=== PATIENT | male | born 1975 | race Hispanic/Latino ===

== ENCOUNTER 2020-08-22 12:10 | Emergency (ER) | payer OTHER ==
--- OUTSIDE RECORDS SUMMARY | 2020-08-22 12:14 | XMS REPORT | Continuity of Care Document ---
:1975 Author Organization [facility] t Address [address] [place] [address] Care Team Providers Name Role Phone Wheeler Rosalba BLANCO Attending Clinician [phone] Oleg BERUMEN Attending Clinician Unavailable AUGUST KAUR Attending Clinician Unavailable August Kaur MD Attending Clinician Katherine ADAMS Attending Clinician Mayra Perrin MD Attending Clinician Harlan Bess MD Attending Clinician Anabel Pacheco MD Attending Clinician KATHERINE Admitting Clinician Unavailable Problems Condition Condition Condition Status Onset Resolution Last Treating Co mments Source Name Details Category Date Date Treatment Clinician Date Upper GI Upper [facility] Disease [facility] [place] Alcoholism Alcoholism Disease Active [address] 10[facility]06 [facility] 00 [place] Allergies, Adverse Reactions, Alerts This patient has no known allergies or adverse reactions. Social History Social Habit Start Date Stop Date Quantity Comments Source Sex Assigned At [facility] Tobacco use and 2019-10-09 2019-10-09 Current user [facility] - exposure 00:00:00 00:00:00 [facility] Alcohol intake 2019-10-09 2019-10-09 [facility] (finding) Tobacco Comment 2019-10-07 2019-10-07 only on weekends [facility] kes - 00:00:00 00:00:00 10-12 cigrettes Medical C enter Alcohol Comment 2019-10-07 2019-10-07 daily [facility] kes - 00:00:00 00:00:00 Medical Center Smoking Status Start Date Stop Date Source Current some day smoker 2019-10-09 00:00:00 [facility] Medications Ordered Filled Start Stop Current Ordering Indication Dosage Frequency Signature Comments Components Source Medication Medication Date Date Medication? Clinician (SIG) Name Name multivitami No 1{tbl} QD Take [address] n 10-09 tablet by [facility] - (THERAGRAN) 00:00: 23:59 mouth Medi mariana tablet 00 :00 daily for Center 30 days. levoFLOXaci No 500mg QD Take [address] n 10-09 tablet [facility] - (LEVAQUIN) 00:00: 23:59 (500 mg Med ical 500 MG 00 :00 total) by Center tablet mouth daily for 2 days START 10/10/19. pantoprazol No 40mg Q.5D Take [address] [facility] [address] e 10-08 tablet (40 [facility] - (PROTONIX) 00:00: 23:59 mg total) M edical 40 MG 00 :00 by mouth 2 Center tablet (two) times daily for 30 days. Vital Signs Vital Name Observation Time Observation Value Comments Source Systolic blood 2019-10-09 12:08:00 150 mm[Hg] [facility] Diastolic blood 2019-10-09 12:08:00 76 mm[Hg] [facility] S t [facility] Heart rate 2019-10-09 12:08:00 63 /min [facility] Body temperature 2019-10-09 12:08:00 37.06 Jess [facility] Respiratory rate 2019-10-09 12:08:00 18 /min [facility] Oxygen saturation in 2019-10-09 12:08:00 100 /min [facility] Arterial blood by Medical Ce nter Pulse oximetry Body height 2019-10-07 02:30:00 170.2 cm [facility] Body weight 2019-10-07 02:30:00 85.004 kg [facility] BMI 2019-10-07 02:30:00 29.35 kg/m2 [facility] Procedures Procedure Date / Time Performing Clinician Source Performed CBC W/PLT COUNT & AUTO 2019-10-09 04:31:00 Velazco, Keyon [facility] COMPREHENSIVE METABOLIC 2019-10-09 04:31:00 Velazco, Keyon Patiño I [facility] MAGNESIUM 2019-10-09 04:31:00 Velazco, [facility] LPDPT-4-XPABWGPEMSD\\, 2019-10-09 04:31:00 Ko Cloón [facility] HEPATITIS B PANEL 2019-10-09 04:31:00 Ko Colón [facility] HEPATITIS A ANTIBODY, IGG 2019-10-09 04:31:00 Darleen Colón [facility] IMMUNOGLOBULIN G (IGG) 2019-10-09 04:31:00 Ko Colón [facility] US ABDOMINAL WITH DOPPLER 2019-10-08 23:06:00 [facility] TRANSFUSION SERVICE REPORT 2019-10-08 18:00:44 Provider, Emir [facility] - - SCAN Scanning [facility] MAGNESIUM 2019-10-08 04:18:00 Velazco, Keyon [facility] CBC W/PLT COUNT & AUTO 2019-10-08 04:18:00 [facility] METABOLIC 2019-10-08 04:18:00 Velazco, Keyon [facility] HEPATITIS PANEL, ACUTE 2019-10-08 04:17:00 Brianna Bess [facility] ALPHA FETOPROTEIN (AFP), 2019-10-08 04:17:00 Brianna Bess [facility] TUMOR MARKER [facility] ACTIN (SMOOTH MUSCLE) 2019-10-08 04:17:00 Fox Duran [facility] - ANTIBODY, IGG [facility] MITOCHONDRIA M2 ANTIBODY 2019-10-08 04:17:00 Duran, [facility] (IGG) [facility] FERRITIN 2019-10-08 04:17:00 [facility] IRON, TIBC, % SAT. 2019-10-08 04:17:[address] [facility] (WITHOUT FERRITIN) [facility] VITAMIN B12 2019-10-08 04:17:00 [facility] FOLATE, SERUM 2019-10-08 04:17:00 [facility] CERULOPLASMIN 2019-10-08 04:17:00 [facility] UPPER ENDOSCOPY 2019-10-07 15:30:00 Shahriar [facility] REPORT OF PROCEDURE - 2019-10-07 15:17:09 [place]riar [place] [facility] ENDOSCOPY [facility] US ABDOMEN LIMITED 2019-10-07 08:23:00 Velazco, [facility] ABORH, MANUAL 2019-10-07 07:12:00 Ifeoma Tomas [facility] TYPE AND SCREEN, AUTOMATED 2019-10-07 05:47:00 Velazco, [facility] MAGNESIUM 2019-10-07 05:47:00 Velazco, [facility] SARS-COV2/RT-PCR ([facility] & 2019-10-07 04:41:00 Katherine [facility] - REF LABS) [facility] CBC W/PLT COUNT & AUTO 2019-10-07 04:29:00 Velazco, Keyon [facility] DIFFERENTIAL [facility] COMPREHENSIVE METABOLIC 2019-10-07 04:29:00 Velazco, Keyon [facility] PANEL [facility] PROTHROMBIN TIME/INR 2019-10-07 04:29:00 Velazco, Keyon [facility] t [place] [facility] APTT 2019-10-07 04:29:00 Velazco, [facility] Plan of Care Planned Activity Planned Date Details Comments Source Future Scheduled 2020-10-[address] [facility] Test 00:00:00 (Season Ended) [code = [facility] INFLUENZA VACCINE (Season Ended)] Future Scheduled 2020-03-[address] [facility] - Test 00:00:00 (12+) [code = Medical Center DEPRESSION SCREENING (12+)] Future Scheduled 2010-11-[address] [facility] - Test 00:00:00 (procedure) [code = [facility] 47854896] Future Scheduled 1994-11-13 DTAP/TDAP/TD VACCINES [facility] Test 00:00:00 (1 - Tdap) [code = Medical C enter DTAP/TDAP/TD VACCINES (1 - Tdap)] Future Scheduled 1987 COVID-19 VACCINE (1) [facility] - Test 00:00:00 [code = COVID-[address] VACCINE (1)] Future Scheduled 1981-11-[address] [facility] - Test 00:00:00 0-64 YRS (1 of 1 - Medical C enter PPSV23) [code = PNEUMOCOCCAL VACCINE 0-64 YRS (1 of 1 - PPSV23)] Results Test Description Test Time Test Comments Results Result Comments Source Ceruloplasmin 2019-10-12 14:40:00 Test Item Value Reference Range Interpretation Comme nts Ceruloplasmin (test code = 9794401) 22 mg/dL 18-36 JAIME (test code = JAIME) Performing Lab *VIDAL [employer], [address] [place] [id number] Alan Byrne MD, PhD [facility] (Smooth Muscle) Antibody, [id number] 06:52:00 Test Item Value Reference Range Interpretation Comments Anti-Smooth <20 See Note: U Reference Range :<20 Muscle Ab NEGATIVE> O R = 20 (test code = POSITIVE Antibo dies 9944242) recognizing act in are the main compon entof smooth muscle antibodies asso ciated withautoimmune liver disease. Actin antibodies aref ound in approximatel y 75% of patients withautoimmune hepatitis (AIH) type 1, approximatel y65% of patients wit h autoimmune cholangitis,[place] roxima tely 30% of pat ients with primary biliarycirrhosi s, and approximately 2 % of healthy people. High values are clos corbin correlated with AIH type 1. JAIME (test code Performing Lab = JAIME) EZ [facility] [address] [place] [address] Yanira Wong MD, PhD, LIS [facility] CenterMitochondria M2 Antibody (IgG)2019-10-12 06:52:00 Test Item Value Reference Range Interpretation Comments Mitochondria M2 Ab <20.0 See Note: U Reference (test code = Range:NEGATIVE: ) < OR = 20.0EQUIVOCAL: 20.1-24.9POSITI V E: > OR = 25.0 JAIME (test code = Performing Lab JAIME) [facility] [address] [place] [address] Yanira Wong MD, PhD, LIS [facility] panel, [id number] 12:24:00 Test Item Value Reference Range Interpretation Comments Hep A IgM (test code Nonreactive Nonreactive = 85601-4) Hep B C IgM (test Nonreactive Nonreactive Testing code = 76130-7) Performed at [facility]. Hepatitis C Ab (test Nonreactive Nonreactive code = 01102-8) HBsAg Screen (test Nonreactive Nonreactive code = 5195-3) JAIME (test code = JAIME) Cost Reduction Engineer ID - SHAZIA F Lab Interpretation Normal (test code = 95835-1) [facility] PANEL, [id number] 12:24:00 Test Item Value Reference Range Interpretation Comments HEPATITIS A IGM Nonreactive Nonreactive ANTIBODY (BEAKER) (test code = 498) HEPATITIS B CORE IGM Nonreactive Nonreactive Testing Performed at ANTIBODY (BEAKER) Droid system master. (test code = 645) HEPATITIS C ANTIBODY Nonreactive Nonreactive (BEAKER) (test code = 367) HEPATITIS B SURFACE Nonreactive Nonreactive ANTIGEN (2) (BEAKER) (test code = 2585) Cost Reduction Engineer ID Mini MCCRAY FHepatitis A antibody, [id number] 06:49:00 Test Item Value Reference Range Interpretation Comments Hep A IgG (test code = Reactive Nonreactive A 32268-4) JAIME (test code = JAIME) Cost Reduction Engineer ID Mini BURNHAM Lab Interpretation (test Abnormal code = 52079-0) [facility] A ANTIBODY, [id number] 06:49:00 Test Item Value Reference Range Interpretation Comments HEPATITIS A IGG ANTIBODY (BEAKER) Reactive Nonreactive A (test code = 2797) Cost Reduction Engineer ID - DBHepatitis B [id number] 05:48:00 Test Item Value Reference Range Interpretation Comments Hep B Core Total Ab Nonreactive Nonreactive (test code = 60000-2) Hep B S Ab (test <8.0 See_Comment [Automated code = 33504-9) message] The system which generated this result transmitted reference range : <8.0 mIU/mL. e reference range was not used to interpret this result as normal/abnormal . HBsAg Screen (test Nonreactive Nonreactive code = 5195-3) JAIME (test code = Cost Reduction Engineer ID - DB JAIME) Lab Interpretation Normal (test code = 55405-6) [facility] B [id number] 05:48:00 Test Item Value Reference Range Interpretation Comments HEPATITIS B CORE TOTAL ANTIBODY Nonreactive Nonreactive (BEAKER) (test code = 497) HEPATITIS B SURFACE ANTIBODY < mIU/mL <8.0 (BEAKER) (test code = 647) HEPATITIS B SURFACE ANTIGEN (2) Nonreactive Nonreactive (BEAKER) (test code = 2585) Cost Reduction Engineer ID - DBComprehensive metabolic [id number] 05:37:00 Test Item Value Reference Range Interpretation Comments Protein, Total (test 7.0 See_Comment Specime n code = 2885-2) moderately hemolyzed [Automated message] The system which generated this result transmit mariela reference range : 6.0 - 8.3 gm/dL . The reference range was not u sed to interpret th is result as normal/abnormal . Albumin (test code = 3.4 g/dL 3.5-5 [place] [address]-3) moderately hemolyzed Alkaline Phosphatase 78 U/L 40-150 (test code = 6768-6) Total Bilirubin (test 1.7 mg/dL 0.2-1.2 H Specim en code = 1975-2) moderately hemolyzed Sodium (test code = 138 meq/L 037-071 2764-2) Potassium (test code 3.8 meq/L 3.5-5.1 Specime n = 2823-3) moderately hemolyzed Chloride (test code = 104 meq/L 98-107 2075-0) CO2 (test code = 26 meq/L 22-29 8-9) BUN (test code = 10 mg/dL 7-21 3094-0) Creatinine (test code 0.74 mg/dL 0.57-1.25 Specim en = 2160-0) moderately hemolyzed Glucose (test code = 106 mg/dL 70-105 H 2345-7) Calcium (test code = 8.5 mg/dL 8.4-10.2 62843-2) AST (test code = 70 U/L 5-34 H Specimen 1920-8) moderately hemolyzed ALT (test code = 25 U/L 6-55 Specimen 1742-6) moderately hemolyzed EGFR (test code = 115 mL/min/1.73 [place] [address]-9) NOT ACCURATE CREATININE CLEARANCE IN PREDICTING GLOMERULAR FILTRATION RATE . ESTIMATED GFR I S NOT APPLICABLE FOR DIALYSIS PATIEN TS. JAIME (test code = JAIME) Cost Reduction Engineer ID - EDASI Lab Interpretation Abnormal (test code = 95733-8) [facility] 05:37:00 Test Item Value Reference Range Interpretation Comments Magnesium (test code = 2.0 mg/dL 1.6-2.6 Speci men 01697-9) moderately hemolyzed AJIME (test code = JAIME) Cost Reduction Engineer ID - EDASI Lab Interpretation Normal (test code = 73221-5) [facility] 05:37:00 Test Item Value Reference Range Interpretation Comments MAGNESIUM (BEAKER) 2.0 mg/dL 1.6-2.6 Specimen moderately (test code = 627) hemolyzed Cost Reduction Engineer ID - EDASICOMPREHENSIVE METABOLIC [id number] 05:37:00 Test Item Value Reference Range Interpretation Comments TOTAL PROTEIN 7.0 gm/dL 6.0-8.3 Specimen moder ately (BEAKER) (test code = hemoly zed 770) ALBUMIN (BEAKER) 3.4 g/dL 3.5-5.0 L Specimen mo derately (test code = 1145) hemolyzed ALKALINE PHOSPHATASE 78 U/L 40-150 (BEAKER) (test code = 346) BILIRUBIN TOTAL 1.7 mg/dL 0.2-1.2 H Specimen mod erately (BEAKER) (test code = hemoly zed 377) SODIUM (BEAKER) (test 138 meq/L 136-145 code = 381) POTASSIUM (BEAKER) 3.8 meq/L 3.5-5.1 Specimen moderately (test code = 379) hemolyzed CHLORIDE (BEAKER) 104 meq/L 98-107 (test code = 382) CO2 (BEAKER) (test 26 meq/L 22-29 code = 355) BLOOD UREA NITROGEN 10 mg/dL 7-21 (BEAKER) (test code = 354) CREATININE (BEAKER) 0.74 mg/dL 0.57-1.25 Specimen moderately (test code = 358) hemolyzed GLUCOSE RANDOM 106 mg/dL 70-105 H (BEAKER) (test code = 652) CALCIUM (BEAKER) 8.5 mg/dL 8.4-10.2 (test code = 697) AST (SGOT) (BEAKER) 70 U/L 5-34 H Specimen moderately (test code = 353) hemolyzed ALT (SGPT) (BEAKER) 25 U/L 6-55 Specimen moderately (test code = 347) hemolyzed EGFR (BEAKER) (test 115 ESTIMATE D GFR IS code = 1092) mL/min/1.73 sq NOT ACCURA TE m CREATININE CLEARANCE IN PREDICTING GLOMERULAR FILTRATION RATE . ESTIMATED GFR I S NOT APPLICABLE FOR DIALYSIS PATIEN TS. Cost Reduction Engineer ID - EDASIImmunoglobulin G (IgG)2019-10-09 05:12:00 Test Item Value Reference Range Interpretation Comments IgG (test code = 2465-3) 1311 mg/dL 540-1822 JAIME (test code = JAIME) Cost Reduction Engineer ID - DB Lab Interpretation (test Normal code = 33507-0) [facility] CenterAlpha-1-[id number] 05:12:00 Test Item Value Reference Range Interpretation Comments A-1 Antitrypsin (test code = 155.70 mg/dL 90-200 1825-9) JAIME (test code = JAIME) Cost Reduction Engineer ID - DB Lab Interpretation (test Normal code = 33682-0) [facility] [id number]-1-[id number] 05:12:00 Test Item Value Reference Range Interpretation Comments ALPHA-1 ANTITRYPSIN (BEAKER) 155.70 mg/dL 90.00-200.00 (test code = 502) Cost Reduction Engineer ID - DBIMMUNOGLOBULIN G (IGG)2019-10-09 05:12:00 Test Item Value Reference Range Interpretation Comments IMMUNOGLOBULIN G (IGG) (BEAKER) 1311 mg/dL 540-1,822 (test code = 427) Cost Reduction Engineer ID - DBCBC with platelet count + automated [id number] 04:47:00 Test Item Value Reference Range Interpretation Comments WBC (test code = 6690-2) 6.1 See_Comment [A utomated message] The system [employer] generated this result transmitted ref erence range: 3.5 - 10 .5 K/L. The refe rence range was not u sed to interpret this result as normal/abnor mal. RBC (test code = 789-8) 3.55 See_Comment L [Au tomated message] The system [employer] generated this result transmitted ref erence range: 4.63 - 6 .08 M/L. The refe rence range was not u sed to interpret this result as normal/abnor mal. MCHC (test code = 786-4) 33.2 See_Comment L [A utomated message] The system [employer] generated this result transmitted ref erence range: 32.3 - 3 6.5 GM/DL. The refe rence range was not u sed to interpret this result as normal/abnor mal. Hematocrit (test code = 36.4 % 40.1-51 L 4544-3) MCV (test code = 787-2) 102.5 fL 79-92.2 H MCH (test code = 785-6) 34.1 pg 25.7-32.2 H RDW (test code = 788-0) 13.8 % 11.6-14.4 Platelets (test code = 48 See_Comment L [Aut omated message] 777-3) The system [employer] generated this result transmitted ref erence range: 150 - 45 0 K/CU MM. The referen ce range was not u sed to interpret this result as normal/abnor mal. MPV (test code = 11.8 fL 9.4-12.4 30450-0) nRBC (test code = 413) 0 See_Comment [Aut omated message] The system [employer] generated this result transmitted ref erence range: 0 - 0 /1 00 WBC. The refere nce range was not u sed to interpret this result as normal/abnor mal. % Neutros (test code = 61 % 429) % Lymphs (test code = 23 % 430) % Monos (test code = 11 % 431) % Eos (test code = 432) 4 % % Baso (test code = 437) 1 % # Neutros (test code = 3.76 See_Comment [Aut omated message] 670) The system [employer] generated this result transmitted ref erence range: 1.78 - 5 .38 K/L. The refe rence range was not u sed to interpret this result as normal/abnor mal. # Lymphs (test code = 1.38 See_Comment [Auto mated message] 414) The system [employer] generated this result transmitted ref erence range: 1.32 - 3 .57 K/L. The refe rence range was not u sed to interpret this result as normal/abnor mal. # Monos (test code = 0.69 See_Comment [Autom ated message] 415) The system [employer] generated this result transmitted ref erence range: 0.30 - 0 .82 K/L. The refe rence range was not u sed to interpret this result as normal/abnor mal. # Eos (test code = 416) 0.25 See_Comment [Au tomated message] The system [employer] generated this result transmitted ref erence range: 0.04 - 0 .54 K/L. The refe rence range was not u sed to interpret this result as normal/abnor mal. # Baso (test code = 417) 0.04 See_Comment [A utomated message] The system [employer] generated this result transmitted ref erence range: 0.01 - 0 .08 K/L. The refe rence range was not u sed to interpret this result as normal/abnor mal. Immature 0 % 0-1 Granulocytes-Relative (test code = 2801) Lab Interpretation (test Abnormal code = 34117-4) [facility] W/PLT COUNT & AUTO [id number] 04:47:00 Test Item Value Reference Range Interpretation Comments WHITE BLOOD CELL COUNT (BEAKER) 6.1 K/ L 3.5-10.5 (test code = 775) RED BLOOD CELL COUNT (BEAKER) 3.55 M/ L 4.63-6.08 L (test code = 761) HEMOGLOBIN (BEAKER) (test code = 12.1 GM/DL 13.7-17.5 L 410) HEMATOCRIT (BEAKER) (test code = 36.4 % 40.1-51.0 L 411) MEAN CORPUSCULAR VOLUME (BEAKER) 102.5 fL 79.0-92.2 H (test code = 753) MEAN CORPUSCULAR HEMOGLOBIN 34.1 pg 25.7-32.2 H (BEAKER) (test code = 751) MEAN CORPUSCULAR HEMOGLOBIN CONC 33.2 GM/DL 32.3-36.5 (BEAKER) (test code = 752) RED CELL DISTRIBUTION WIDTH 13.8 % 11.6-14.4 (BEAKER) (test code = 412) PLATELET COUNT (BEAKER) (test code 48 K/CU MM 150-450 L = 756) MEAN PLATELET VOLUME (BEAKER) 11.8 fL 9.4-12.4 (test code = 754) NUCLEATED RED BLOOD CELLS (BEAKER) 0 /100 WBC 0-0 (test code = 413) NEUTROPHILS RELATIVE PERCENT 61 % (BEAKER) (test code = 429) LYMPHOCYTES RELATIVE PERCENT 23 % (BEAKER) (test code = 430) MONOCYTES RELATIVE PERCENT 11 % (BEAKER) (test code = 431) EOSINOPHILS RELATIVE PERCENT 4 % (BEAKER) (test code = 432) BASOPHILS RELATIVE PERCENT 1 % (BEAKER) (test code = 437) NEUTROPHILS ABSOLUTE COUNT 3.76 K/ L 1.78-5.38 (BEAKER) (test code = 670) LYMPHOCYTES ABSOLUTE COUNT 1.38 K/ L 1.32-3.57 (BEAKER) (test code = 414) MONOCYTES ABSOLUTE COUNT (BEAKER) 0.69 K/ L 0.30-0.82 (test code = 415) EOSINOPHILS ABSOLUTE COUNT 0.25 K/ L 0.04-0.54 (BEAKER) (test code = 416) BASOPHILS ABSOLUTE COUNT (BEAKER) 0.04 K/ L 0.01-0.08 (test code = 417) IMMATURE GRANULOCYTES-RELATIVE 0 % 0-1 PERCENT (BEAKER) (test code = 2801) U/S, ABDOMINAL, WITH [id number] 01:03:00Reason for exam:->Complete U/s, including eval of portal system for thrombosis and spleenFINAL REPORT History: "Complete ultrasound, including evaluation of portal system for thrombosis and spleen" Abdominal ultrasound dated 10/08/2019 Comparison: 10/07/2019 Comment: Real-time transabdominal ultrasound of the abdomen was performed. Liver: 14.8 cm , normal. Heterogeneous parenchymal echogenicity. No focal lesions. Gallbladder: No gallstones. No gallbladder wall thickening. No perocholecystic fluid.. No sonographic Emmanuel's sign. Biliary tree: No intrahepatic ductal dilatation. CBD: 5 mm. Spleen: Mild splenomegaly measuring 13.4 cm. Pancreas: Unremarkable. Right kidney: 10.5 x 5.0 x 5.1 cm. Normal echogenicity.Left kidney: 11.8 x 6.6 x 5.4 cm. Normal echogenicity. No ascites is present in the abdomen. Real-time Greenfield scale, color and spectral doppler ultrasound of the abdomen was performed to evaluate visceral blood flow. Main portal vein measures 1.3 cm in diameter. There is hepatopetal flow in the main portal vein with velocity 17 cm/sec. The right and left intrahepatic portal veins are patent with hepatopetal flow. The splenic vein is patent with appropriateflow. Proper hepatic artery, right hepatic artery, and left hepatic artery are patent with resistiveindices 0.7, 0.7, and 0.7 respectively. IVC, Hepatic venous confluence, right HV, middle HV and leftHV are patent with appropriate flow. The visualized abdominal aorta is normal in caliber. Impression: Heterogeneous hepatic parenchymal echogenicity, a nonspecific appearance often associated with underlying parenchymal disease, such as cirrhosis. Correlation is recommended. Mild splenomegaly. Unremarkable abdominal Doppler evaluation. Signed: Omid [place] MDReport Verified Date/Time: 10/09/201901:03:55 US abdominal with [id number] 01:03:00Interface, External Ris In - 10/09/2019 1:07 AM CDTFINAL REPORT History: "Complete ultrasound, including evaluation of portal system for thrombosis and spleen" Abdominal ultrasound dated 10/08/2019 Comparison: 10/07/2019 Comment: Real-time transabdominal ultrasound of the abdomenwas performed. Liver: 14.8 cm , normal. Heterogeneous parenchymal echogenicity. No focal lesions. Gallbladder: No gallstones. No gallbladder wall thickening. No perocholecystic fluid.. No sonographic Emmanuel's sign. Biliary tree: No intrahepatic ductal dilatation. CBD: 5 mm. Spleen: Mild splenomegaly measuring 13.4 cm. Pancreas: Unremarkable. Right kidney: 10.5 x 5.0 x 5.1 cm. Normal echogenicity.Left kidney: 11.8 x 6.6 x 5.4 cm. Normal echogenicity. No ascites is present in the abdomen. Real-time Greenfield scale, color and spectral doppler ultrasound of the abdomen was performed to evaluate visceral blood flow. Main portal vein measures 1.3 cm in diameter. There is hepatopetal flow in the main portal vein with velocity 17 cm/sec. The right and left intrahepatic portal veins are patent with hepatopetal flow. The splenic vein is patent with appropriate flow. Proper hepatic artery, right hepatic artery, and left hepatic artery are patent with resistive indices 0.7, 0.7, and 0.7 respectively. IVC, Hepatic venous confluence, right HV, middle HV and left HV are patent with appropriate flow. The visualized abdominal aorta is normal in caliber. Impression: Heterogeneous hepatic parenchymal echogenicity, a nonspecific appearance often associated with underlying parenchymal disease, such as cirrhosis. Correlation is recommended. Mild splenomegaly. Unremarkable abdominal Doppler evaluation. Signed: Omid Phoenix MDReport Verified Date/Time: 10/09/2019 01:03:55 [facility] Test Item Value Reference Range Interpretation Comments Ferritin (test code = 50.67 ng/mL 5-275 2276-4) JAIME (test code = JAIME) Cost Reduction Engineer ID - EDASI Lab Interpretation (test Normal code = 26091-9) [facility] CenterFolate, [id number] 08:10:00 Test Item Value Reference Range Interpretation Comments Folate (test code = 8.40 ng/mL See_Comment [Automa mariela 2284-8) message] The system which generated this result transmit mariela reference range : >=7.00. The reference range was not used to interpret this result as normal/abnormal . JAIME (test code = JAIME) Cost Reduction Engineer ID - KRISHAN Lab Interpretation Normal (test code = 58396-2) [facility] CenterFERRITIN2020-[facility] 08:10:00 Test Item Value Reference Range Interpretation Comments FERRITIN (BEAKER) (test code = 50.67 ng/mL 5.00-275.00 361) Cost Reduction Engineer ID - EDASIFOLATE, [id number] 08:10:00 Test Item Value Reference Range Interpretation Comments FOLATE (BEAKER) (test code = 362) 8.40 ng/mL >=7.00 Cost Reduction Engineer ID - EDASIAlpha fetoprotein (AFP), tumor [id number] 07:17:00 Test Item Value Reference Range Interpretation Comments Alpha-Fetoprotein (test 4.6 ng/mL <10.0 code = 1834-1) JAIME (test code = JAIME) Cost Reduction Engineer ID - SHAZIA F Lab Interpretation (test Normal code = 68742-1) [facility] CenterALPHA FETOPROTEIN (AFP), TUMOR [id number] 07:17:00 Test Item Value Reference Range Interpretation Comments ALPHA-FETOPROTEIN (BEAKER) (test 4.6 ng/mL <10.0 code = 1094) Cost Reduction Engineer ID - SHAZIA Dhillonon, TIBC, % sat. (without ferritin)2019-10-08 06:55:00 Test Item Value Reference Range Interpretation Comments Iron (test code = 2498-4) 258.0 ug/dL 40-160 H TIBC (test code = 2500-7) 250 ug/dL 250-450 Iron % Saturation (test 103 % 20-55 H code = 2502-3) JAIME (test code = JAIME) Cost Reduction Engineer ID - TERI M Lab Interpretation (test Abnormal code = 02214-4) [facility] CenterIRON, TIBC, % SAT. (WITHOUT FERRITIN)2019-10-08 06:55:00 Test Item Value Reference Range Interpretation Comments IRON (BEAKER) (test code = 547) 258.0 ug/dL 40.0-160.0 H TOTAL IRON BINDING CAPACITY 250 ug/dL 250-450 (BEAKER) (test code = 769) IRON % SATURATION (2) (BEAKER) 103 % 20-55 H (test code = 2590) Cost Reduction Engineer ID - TERI MVitamin [id number] 05:50:00 Test Item Value Reference Range Interpretation Comments Vitamin B12 (test code = 1772 pg/mL 213-816 H 2132-9) JAIME (test code = JAIME) Cost Reduction Engineer ID - EDASI Lab Interpretation (test Abnormal code = 53368-2) [facility] CenterVITAMIN [id number] 05:50:00 Test Item Value Reference Range Interpretation Comments VITAMIN B12 (BEAKER) (test code = 1772 pg/mL 213-816 H 774) Cost Reduction Engineer ID - EDASICOMPREHENSIVE METABOLIC [id number] 04:57:00 Test Item Value Reference Range Interpretation Comments TOTAL PROTEIN 6.3 gm/dL 6.0-8.3 (BEAKER) (test code = 770) ALBUMIN (BEAKER) 3.2 g/dL 3.5-5.0 L (test code = 1145) ALKALINE PHOSPHATASE 75 U/L 40-150 (BEAKER) (test code = 346) BILIRUBIN TOTAL 2.3 mg/dL 0.2-1.2 H (BEAKER) (test code = 377) SODIUM (BEAKER) (test 135 meq/L 136-145 L code = 381) POTASSIUM (BEAKER) 3.8 meq/L 3.5-5.1 (test code = 379) CHLORIDE (BEAKER) 102 meq/L 98-107 (test code = 382) CO2 (BEAKER) (test 28 meq/L 22-29 code = 355) BLOOD UREA NITROGEN 15 mg/dL 7-21 (BEAKER) (test code = 354) CREATININE (BEAKER) 0.81 mg/dL 0.57-1.25 (test code = 358) GLUCOSE RANDOM 255 mg/dL 70-105 H (BEAKER) (test code = 652) CALCIUM (BEAKER) 7.8 mg/dL 8.4-10.2 L (test code = 697) AST (SGOT) (BEAKER) 42 U/L 5-34 H (test code = 353) ALT (SGPT) (BEAKER) 18 U/L 6-55 (test code = 347) EGFR (BEAKER) (test 104 ESTIMATE D GFR IS code = 1092) mL/min/1.73 sq NOT ACCURA TE m CREATININE CLEARANCE IN PREDICTING GLOMERULAR FILTRATION RATE . ESTIMATED GFR I S NOT APPLICABLE FOR DIALYSIS PATIEN TS. Cost Reduction Engineer ID - TERI MSpecimen slightly [id number] 04:56:00 Test Item Value Reference Range Interpretation Comments MAGNESIUM (BEAKER) (test code = 1.9 mg/dL 1.6-2.6 627) Cost Reduction Engineer ID - TERI MCBC W/PLT COUNT & AUTO [id number] 04:48:00 Test Item Value Reference Range Interpretation Comments WHITE BLOOD CELL COUNT (BEAKER) 5.7 K/ L 3.5-10.5 (test code = 775) RED BLOOD CELL COUNT (BEAKER) 3.23 M/ L 4.63-6.08 L (test code = 761) HEMOGLOBIN (BEAKER) (test code = 10.8 GM/DL 13.7-17.5 L 410) HEMATOCRIT (BEAKER) (test code = 33.1 % 40.1-51.0 L 411) MEAN CORPUSCULAR VOLUME (BEAKER) 102.5 fL 79.0-92.2 H (test code = 753) MEAN CORPUSCULAR HEMOGLOBIN 33.4 pg 25.7-32.2 H (BEAKER) (test code = 751) MEAN CORPUSCULAR HEMOGLOBIN CONC 32.6 GM/DL 32.3-36.5 (BEAKER) (test code = 752) RED CELL DISTRIBUTION WIDTH 14.5 % 11.6-14.4 H (BEAKER) (test code = 412) PLATELET COUNT (BEAKER) (test code 39 K/CU MM 150-450 L = 756) MEAN PLATELET VOLUME (BEAKER) 12.0 fL 9.4-12.4 (test code = 754) NUCLEATED RED BLOOD CELLS (BEAKER) 0 /100 WBC 0-0 (test code = 413) NEUTROPHILS RELATIVE PERCENT 70 % (BEAKER) (test code = 429) LYMPHOCYTES RELATIVE PERCENT 17 % (BEAKER) (test code = 430) MONOCYTES RELATIVE PERCENT 10 % (BEAKER) (test code = 431) EOSINOPHILS RELATIVE PERCENT 3 % (BEAKER) (test code = 432) BASOPHILS RELATIVE PERCENT 1 % (BEAKER) (test code = 437) NEUTROPHILS ABSOLUTE COUNT 3.96 K/ L 1.78-5.38 (BEAKER) (test code = 670) LYMPHOCYTES ABSOLUTE COUNT 0.94 K/ L 1.32-3.57 L (BEAKER) (test code = 414) MONOCYTES ABSOLUTE COUNT (BEAKER) 0.55 K/ L 0.30-0.82 (test code = 415) EOSINOPHILS ABSOLUTE COUNT 0.14 K/ L 0.04-0.54 (BEAKER) (test code = 416) BASOPHILS ABSOLUTE COUNT (BEAKER) 0.05 K/ L 0.01-0.08 (test code = 417) IMMATURE GRANULOCYTES-RELATIVE 0 % 0-1 PERCENT (BEAKER) (test code = 2801) SARS-CoV2/RT-PCR (Asymptomatic ONLY)2019-10-07 12:24:00 Test Item Value Reference Range Interpretation Comments SARS-COV2/RT-PCR Negative Not Detected, (test code = Negative, See 67881-1) external report for linked test SARS-COV-2 [facility] (test code = 71320-1) JAIME (test code = Negative result for this JAIME) test determines that SARS-CoV-2 RNA was not present in the specimen above the Limit of Detection (LOD). However, Negative results do not preclude SARS-CoV-2 infection and should not be used as the sole basis for treatment or patient management decisions. Negative results must be combined with clinical observations, patient history, and epidemiological information. A false negative result may occur if a specimen is improperly collected, transported or handled. A false negative result should be considered if patient's recent exposures or clinical presentation indicate that COVID-19 (SARS-CoV-2) is likely and diagnostic tests for other causes of illness are negative. Re-testing should be considered in cases of suspected false negatives. The limit of detection for this assay is 800 copies/mL. This SARS CoV-2 test is a real-time RT-PCR test intended for the qualitative detection of nucleic acid from SARS-CoV-2 in a nasopharyngeal swab specimen collected from individuals suspected of COVID-19 by their healthcare provider. This test has not been Food and Drug Administration (FDA) cleared or approved. This is a modified version of an approved Emergency Use Authorization (EUA) and is in the process of review by the FDA. Once authorized by the FDA, the issued EUA will be effective until the declaration that circumstances exist justifying the authorization of the emergency use of in vitro diagnostic tests for detection and/or diagnosis of COVID-19 is terminated under Section 564(b)(2) of the Act or the EUA is revoked under Section 564(g) of the Act. Fact Sheet for Healthcare Providers:https://www.[employer]/sites/default/f farrah/product/documents/F act_Sheet_HC_Providers_L yrz_FBLI-AjN-5.pdf Fact Sheet for Healthcare Patients:https://www.[employer]/sites/default/fi les/product/documents/Fa ct_Sheet_Patients_Lyra_S ARS-CoV-2.pdf Performing Laboratory:[facility], [place] [address] [place], [place] [address]ARS-COV2/RT-PCR ([facility])2019-10-07 12:24:00 Test Item Value Reference Range Interpretation Comments SARS-COV2/RT-PCR (test Negative Not Detected, Negative, code = 9131220) See external report for linked test SARS-COV-[address] [facility] (test code = 0145000) Negative result for this test determines that SARS-CoV-2 RNA was not present in the specimen above the Limit of Detection (LOD). However, Negative results do not preclude SARS-CoV-2 infection and should not be used as the sole basis for treatment or patient management decisions. Negative results mustbe combined with clinical observations, patient history, and epidemiological information. A false negative result may occur if a specimen is improperly collected, transported or handled. A false negative result should be considered if patient's recent exposures or clinical presentation indicate that COVID-19 (SARS-CoV-2) is likely and diagnostic tests for other causes of illness are negative. Re-testing should be considered in cases of suspected false negatives.The limit of detection for this assay is 800 copies/mL.This SARS CoV-2 test is a real-time RT-PCR test intended for the qualitative detection of nucleic acid from SARS-CoV-2 in a nasopharyngeal swab specimen collected from individuals susp ected of COVID-19 by their healthcare provider.This test has not been Food and Drug Administration (FDA) cleared or approved. This is a modified version of an approved Emergency Use Authorization (EUA) and is in the process of review by the FDA. Once authorized by the FDA, the issued EUA will be effective until the declaration that circumstances exist justifying the authorization of the emergency use of in vitro diagnostic tests for detection and/or diagnosis of COVID-19 is terminated under Section 564(b)(2) of the Act or the EUA is revoked under Section 564(g) of the Act.Fact Sheet for Healthcare Providers:https://www.[employer]/sites/default/files/product/documents/Fact_Shee w_VO_Cwfvqvgaa_Khxa_IPIS-CvL-4.pdfFact Sheet for Healthcare Patients:https://www.[employer].com/sites/default/files/product/ documents/Afqi_Edqok_Qxkvoqxv_Eaum_PFBC-EmY-5.pdfPerforming Laboratory:[facility] [address], [place] [address]K/S, ABDOMINAL, [id number] 09:16:00Abdomen limited area? Add comment if clarification is needed.->LiverReason for exam:->PossiblecirrhosisFINAL REPORT Ultrasound of the Right Upper Quadrant of the Abdomen Clinical H istory: Possible cirrhosis Discussion: Sonographic evaluation of the right upper quadrant of the abdomen is performed. Liver: 12.6 cm in length at the right midclavicular line. Coarsened echotexture. No lesion is identified by ultrasound. Main portal vein diameter 1.3 cm. Biliary tree: Common duct 5 mm. No intrahepatic biliary dilatation. Gallbladder: No shadowing calculus/calculi. No wall thickening. No pericholecystic fluid. Negative sonographic Emmanuel's sign. Pancreas: Partially visualized, unremarkable. Ascites: None seen. Right kidney: 11.4 x 5.6 x 5.1 cm. Normal cortical echo genicity. No mass. No shadowing calculus. No hydronephrosis. IVC/Aorta: Segments partially seen. Unremarkable. Impression: Coarsened liver echotexture suggestive of chronic liver disease/cirrhosis. Signed: Mildred, Harvey MDReport Verified Date/Time: 10/07/2019 09:16:55 Reading Location: [facility] C013X Ortho Consult Reading Room US abdomen [id number] 09:16:00Interface, External Ris In - 10/07/2019 9:19 AM CDTFINAL REPORT Ultrasound of the Right Upper Quadrant of the Abdomen Clinical History: Possible cirrhosis Discussion: Sonographic evaluation of the right upper quadrant of the abdomen is performed. Liver: 12.6 cm in length atthe right midclavicular line. Coarsened echotexture. No lesion is identified by ultrasound. Mainportal vein diameter 1.3 cm. Biliary tree: Common duct 5 mm. No intrahepatic biliary dilatation. G allbladder: No shadowing calculus/calculi. No wall thickening. No pericholecystic fluid. Negative sonographic Emmanuel's sign. Pancreas: Partially visualized, unremarkable. Ascites: None seen. Right kidney: 11.4 x 5.6 x 5.1 cm. Normal cortical echogenicity. No mass. No shadowing calculus. No h ydronephrosis. IVC/Aorta: Segments partially seen. Unremarkable. Impression: Coarsened liver echotexture suggestive of chronic liver disease/cirrhosis. Signed: Harvey Levy MDReport Verified Date/Time: 10/07/2019 09:16:55 Reading Location: [facility] B1 C013X Ortho Consult Reading Room [facility]ABORH, [id number] 08:03:00 Test Item Value Reference Range Interpretation Comments ABO Grouping (test code = 2588) B Rh Factor (test code = 2589) POS [facility] CenterMAGNESIUM2020-[facility]-08 06:48:00 Test Item Value Reference Range Interpretation Comments MAGNESIUM (BEAKER) (test code = 2.0 mg/dL 1.6-2.6 627) Cost Reduction Engineer ID - TERI MType and screen, [id number] 06:33:00 Test Item Value Reference Range Interpretation Comments ABO/RH AUTOMATED (BEAKER) (test B POSITIVE code = 2260) Ab Scrn (test code = 890-4) NEGATIVE [facility] CenterCOMPREHENSIVE METABOLIC [id number] 06:00:00 Test Item Value Reference Range Interpretation Comments TOTAL PROTEIN 7.0 gm/dL 6.0-8.3 (BEAKER) (test code = 770) ALBUMIN (BEAKER) 3.6 g/dL 3.5-5.0 (test code = 1145) ALKALINE PHOSPHATASE 89 U/L 40-150 (BEAKER) (test code = 346) BILIRUBIN TOTAL 1.2 mg/dL 0.2-1.2 (BEAKER) (test code = 377) SODIUM (BEAKER) (test 145 meq/L 136-145 code = 381) POTASSIUM (BEAKER) 3.5 meq/L 3.5-5.1 (test code = 379) CHLORIDE (BEAKER) 112 meq/L 98-107 H (test code = 382) CO2 (BEAKER) (test 21 meq/L 22-29 L code = 355) BLOOD UREA NITROGEN 20 mg/dL 7-21 (BEAKER) (test code = 354) CREATININE (BEAKER) 0.70 mg/dL 0.57-1.25 (test code = 358) GLUCOSE RANDOM 114 mg/dL 70-105 H (BEAKER) (test code = 652) CALCIUM (BEAKER) 8.1 mg/dL 8.4-10.2 L (test code = 697) AST (SGOT) (BEAKER) 56 U/L 5-34 H (test code = 353) ALT (SGPT) (BEAKER) 26 U/L 6-55 (test code = 347) EGFR (BEAKER) (test 123 ESTIMATE D GFR IS code = 1092) mL/min/1.73 sq NOT ACCURA TE m CREATININE CLEARANCE IN PREDICTING GLOMERULAR FILTRATION RATE . ESTIMATED GFR I S NOT APPLICABLE FOR DIALYSIS PATIEN TS. Cost Reduction Engineer ID - TERI [id number] 05:38:00 Test Item Value Reference Range Interpretation Comments PTT (test code = 02781-4) 30.9 See_Comment [ Automated message] The system [employer] generated this result transmitted ref erence range: 22.5 - 3 6.0 seconds. The re ference range was not u sed to interpret this result as normal/abnor mal. Lab Interpretation (test Normal code = 38758-8) [facility] CenterAPTT2020-08-[facility] 05:38:00 Test Item Value Reference Range Interpretation Comments PARTIAL THROMBOPLASTIN TIME 30.9 seconds 22.5-36.0 (BEAKER) (test code = 760) Prothrombin time/[id number] 05:37:00 Test Item Value Reference Interpretation Comments Range Protime (test code = 16.0 See_Comment H [Autom ated 5902-2) message] The system which generated this result transmitted reference range : 11.9 - 14.2 seconds. The reference range was not used to interpret this result as normal/abnormal . INR (test code = 1.3 See_Comment [Automated 6301-6) message] The system which generated this result transmitted reference range : <=5.9. The reference range was not used to interpret this result as normal/abnormal . JAIME (test code = Effective 07/27/2018: JAIME) PT Reference Range ChangeNew: 11.9-14.2 Previous: 11.7-14.7 RECOMMENDED COUMADIN/WARFARIN INR THERAPY RANGESSTANDARD DOSE: 2.0-3.0 Includes: PROPHYLAXIS for venous thrombosis, systemic embolization; TREATMENT for venous thrombosis and/or pulmonary embolus.HIGH RISK: Target INR is 2.5-3.5 for patients wiht mechanical heart valves. Lab Interpretation Abnormal (test code = 47486-7) [facility] CenterPROTHROMBIN TIME/[id number] 05:37:00 Test Item Value Reference Range Interpretation Comments PROTIME (BEAKER) (test code = 16.0 seconds 11.9-14.2 H 759) INR (BEAKER) (test code = 370) 1.3 <=5.9 Effective 07/27/2018: PT Reference Range ChangeNew: 11.9-14.2 Previous: 11.7- 14.7RECOMMENDED COUMADIN/WARFARIN INR THERAPY RANGESSTANDARD DOSE: 2.0-3.0 Includes: PROPHYLAXIS for venous thrombosis, systemic embolization; TREATMENT for venous thrombosis and/or pulmonary embolus.HIGH RISK: Target INR is2.5-3.5 for patients wiht mechanical heart valves.CBC W/PLT COUNT & AUTO [id number] 05:26:00 Test Item Value Reference Range Interpretation Comments WHITE BLOOD CELL COUNT (BEAKER) 7.4 K/ L 3.5-10.5 (test code = 775) RED BLOOD CELL COUNT (BEAKER) 3.43 M/ L 4.63-6.08 L (test code = 761) HEMOGLOBIN (BEAKER) (test code = 11.4 GM/DL 13.7-17.5 L 410) HEMATOCRIT (BEAKER) (test code = 35.2 % 40.1-51.0 L 411) MEAN CORPUSCULAR VOLUME (BEAKER) 102.6 fL 79.0-92.2 H (test code = 753) MEAN CORPUSCULAR HEMOGLOBIN 33.2 pg 25.7-32.2 H (BEAKER) (test code = 751) MEAN CORPUSCULAR HEMOGLOBIN CONC 32.4 GM/DL 32.3-36.5 (BEAKER) (test code = 752) RED CELL DISTRIBUTION WIDTH 14.8 % 11.6-14.4 H (BEAKER) (test code = 412) PLATELET COUNT (BEAKER) (test code 56 K/CU MM 150-450 L = 756) MEAN PLATELET VOLUME (BEAKER) 11.9 fL 9.4-12.4 (test code = 754) NUCLEATED RED BLOOD CELLS (BEAKER) 0 /100 WBC 0-0 (test code = 413) NEUTROPHILS RELATIVE PERCENT 79 % (BEAKER) (test code = 429) LYMPHOCYTES RELATIVE PERCENT 10 % (BEAKER) (test code = 430) MONOCYTES RELATIVE PERCENT 10 % (BEAKER) (test code = 431) EOSINOPHILS RELATIVE PERCENT 0 % (BEAKER) (test code = 432) BASOPHILS RELATIVE PERCENT 0 % (BEAKER) (test code = 437) NEUTROPHILS ABSOLUTE COUNT 5.83 K/ L 1.78-5.38 H (BEAKER) (test code = 670) LYMPHOCYTES ABSOLUTE COUNT 0.77 K/ L 1.32-3.57 L (BEAKER) (test code = 414) MONOCYTES ABSOLUTE COUNT (BEAKER) 0.74 K/ L 0.30-0.82 (test code = 415) EOSINOPHILS ABSOLUTE COUNT 0.00 K/ L 0.04-0.54 L (BEAKER) (test code = 416) BASOPHILS ABSOLUTE COUNT (BEAKER) 0.03 K/ L 0.01-0.08 (test code = 417) IMMATURE GRANULOCYTES-RELATIVE 0 % 0-1 PERCENT (BEAKER) (test code = 2801)
[2020-08-22] MEDS ORDERED: NA CHLORIDE 0.9% 1,000 ML IV SCH (13:00)
[2020-08-22 13:12] LABS: Absolute Lymphocytes (CBC) 1.5 K/uL (0.7-4.9); Basophils % 0.2 % (0-1.3); Hematocrit 32.5 % (39.6-49.0); Lymphocytes % 18.4 % (15.3-44.8); MPV 10.7 fL (7.6-11.3); RBC Red Blood Cell Count 4.31 M/uL (4.33-5.43)
[2020-08-22 13:17] LABS: Urine Blood 3+ (Negative); Urine Glucose Negative (Negative); Urine Protein 3+ (Negative); Urine Specific Gravity >=1.030 (1.005-1.030)
[2020-08-22 13:27] LABS: ALT/SGPT 24 U/L (12-78); AST/SGOT 26 U/L (15-37); Albumin 3.3 g/dL (3.4-5.0); Alkaline Phosphatase 100 U/L (45-117); BUN Blood Urea Nitrogen 12 mg/dL (7-18); Bicarbonate 25 mmol/L (21-32); Bilirubin Total 0.8 mg/dL (0.2-1.0); Glucose Level 120 mg/dL (74-106); Lipase 72 U/L (73-393); Potassium 3.5 mmol/L (3.5-5.1); Protein, Total 7.6 g/dL (6.4-8.2); Sodium Level 139 mmol/L (136-145); Troponin I < 0.02 ng/mL (0.0-0.045)
[2020-08-22 13:42] LABS: Urine Bacteria >50 /HPF (NONE SEEN); Urine RBC >50 /HPF (NONE SEEN)
[2020-08-22 13:43] LABS: Urine Mucus LIGHT /HPF (NONE SEEN); Urine Yeast PRESENT (NONE SEEN)
--- NOTE | 2020-08-22 13:55 | RAD REPORT ---
EXAM DESCRIPTION: CT - Abdomen Pelvis W Contrast - 08/22/2020 1:33 pm CLINICAL HISTORY: abd pain COMPARISON: No comparisons TECHNIQUE: Biphasic, helical CT imaging of the abdomen and pelvis was performed following 100 ml non -ionic IV contrast. No oral contrast administered. All CT scans are performed using dose optimization technique as appropriate and may include automated exposure control or mA/KV adjustment according to patient size. FINDINGS: No suspicious findings in the lung bases. Liver attenuation is borderline fatty infiltrated. No focal liver lesions seen. Portal vein is unrema rkable. No biliary tree dilatation. James of the gallbladder are slightly shaggy in appearance. The u pper and mid portions of the abdomen do several from respiratory motion degradation. Symmetric renal function is seen with no hydronephrosis or suspicious renal mass. No pyelonephritis o r acute parenchymal process. No bladder abnormalities. Urinary bladder is mostly contracted. No adren al abnormalities. Distal esophageal james appear thickened. The esophagus is not fully assessed on this study. James of the stomach are accentuated by absence of intraluminal content. No asymmetric wall thickening or mas s discernible. No large or small bowel dilatation. Appendix is normal. Sigmoid is tortuous with minim al diverticulosis. No free air, free fluid or inflammatory stranding. No hernia, mass or bulky lymphadenopathy. No suspicious bony findings. IMPRESSION: James of the normal-sized gallbladder arch appear slightly shaggy or edematous. Exam has motion degradation which could be the etiology for the gallbladder finding. Gallstones can be occult . Follow-up gallbladder sonography could be performed if patient's pain symptoms localize to the right upper quadrant. Distal esophageal wall thickening incompletely evaluated on this study.
[2020-08-22 14:05] LABS: Platelet Estimate DECR; White Blood Cell Scan OK (OK)
[2020-08-22 14:06] LABS: Anisocytosis 1+; Blood Morphology Comment NOTED (NOT SEEN)
[2020-08-22] MEDS ORDERED: NA CHLORIDE 0.9% 1,000 ML ONE (14:43)
--- NOTE | 2020-08-22 14:51 | RAD REPORT ---
EXAM DESCRIPTION: US - Abdomen Exam Limited - 08/22/2020 2:43 pm CLINICAL HISTORY: RUQ abd pain;Abd pain COMPARISON: Abdomen Pelvis W Contrast dated 08/22/2020 FINDINGS: No gallstones, sludge or other abnormalities within the gallbladder lumen. There is no wal l thickening or pericholecystic fluid. No common duct stone or biliary tree dilatation identified. IMPRESSION: Normal gallbladder and biliary tree ultrasound.
--- NOTE | 2020-08-22 16:21 | ER ---
Nurse's Notes [facility] Name: Jose Luis Lakhani Age: 44 yrs Sex: Male : 1975 Arrival Date: 08/22/2020 Time: 12:17 Bed 15 Private MD: Diagnosis: Generalized abdominal pain;Cystitis, unspecified with hematuria Presentation: 08/22 12:22 Chief complaint: Patient states: abd pain that began yesterday with mild nausea. ss Coronavirus screen: Client denies travel out of the [place] in the last 14 days. Ebola Screen: Patient denies exposure to infectious person. Patient denies travel to an Ebola-affected area in the 21 days before illness onset. Initial Sepsis Screen: Does the patient meet any 2 criteria? No. Patient's initial sepsis screen is negative. Does the patient have a suspected source of infection? No. Patient's initial sepsis screen is negative. Risk Assessment: Do you want to hurt yourself or someone else? Patient reports no desire to harm self or others. Onset of symptoms was August 21, 2020. 12:22 Method Of Arrival: Ambulatory ss 12:22 Acuity: HERNESTO 3 ss Historical: - Allergies: 12:24 No Known Allergies; ss - Home Meds: 12:24 omeprazole 20 mg Oral cpDR 1 cap once daily [Active]; multivitamin oral tab daily ss [Active]; - PMHx: 12:24 None; ss - PSHx: 12:24 None; ss - Immunization history:: Adult Immunizations unknown, Client reports having NOT received the Covid vaccine. - Social history:: Smoking status: Patient denies any tobacco usage or history of. - Family history:: not pertinent. Screenin:04 Abuse screen: Denies threats or abuse. Denies injuries from another. Nutritional tr6 screening: No deficits noted. Tuberculosis screening: No symptoms or risk factors identified. Fall Risk None identified. Assessment: 12:36 General: Appears in no apparent distress. Behavior is calm, cooperative, appropriate tr6 for age. Pain: Complains of pain in generalized abdominal pain. Neuro: No deficits noted. Cardiovascular: No deficits noted. Respiratory: No deficits noted. GI: Bowel sounds present X 4 quads. Abd is soft and non tender. : No deficits noted. EENT: No deficits noted. Derm: No deficits noted. Musculoskeletal: No deficits noted. 16:04 Reassessment: MD at bedside to discuss results with pt and POC. tr6 Vital Signs: 12:22 BP 130 / 95; Pulse 92; Resp 15; Temp 99.9(TE); Pulse Ox 99% on R/A; Height 5 ft. 6 in. ss (167.64 cm); Pain 7/10; 12:37 BP 141 / 89; Pulse 90; Resp 18; Pulse Ox 99% on R/A; tr6 16:00 BP 145 / 93; Pulse 86; Resp 18; Pulse Ox 98% on R/A; tr6 16:34 BP 146 / 94; Pulse 77; Resp 18; Pulse Ox 100% on R/A; tr6 ED Course: 12:17 Patient arrived in ED. mr 12:23 Triage completed. ss 12:24 Arm band placed on left wrist. ss 12:28 Carter Chaidez MD is Attending Physician. ma2 12:36 Patricia Lambert, CY is Primary Nurse. tr6 13:32 Abdomen In Process Unspecified. EDMS 14:43 US Abdomen Limited In Process Unspecified. EDMS 16:04 Patient has correct armband on for positive identification. Bed in low position. Call tr6 light in reach. Side rails up X 1. Pulse ox on. NIBP on. Door closed. Noise minimized. Visitors limited. Lights dimmed. Warm blanket given. Diet: Patient is NPO. 16:04 No provider procedures requiring assistance completed. Inserted saline lock: 18 gauge tr6 in right antecubital area, using aseptic technique. 16:19 Jovan Helton MD is Referral Physician. ma2 16:34 IV discontinued, intact, bleeding controlled, No redness/swelling at site. Pressure tr6 dressing applied. Administered Medications: 14:24 Drug: NS 0.9% 1000 ml Route: IV; Rate: 1 bolus; Site: right antecubital; tr6 Outcome: 16:20 Discharge ordered by . ma2 16:35 Discharged to home ambulatory. tr6 16:35 Condition: stable 16:35 Discharge instructions given to patient, Instructed on discharge instructions, follow up and referral plans. medication usage, safety practices, Demonstrated understanding of instructions, follow-up care, medications, Prescriptions given X 2. 16:37 Patient left the ED. tr6 Signatures: Dispatcher [employer] Sabrina Harris mr Indira Aguilera, CY RN ss Carter Chaidez MD MD wa2 Patricia Lambert RN RN tr6
--- NOTE | 2020-08-22 16:21 | EDPHYS ---
Physician Documentation [facility] Name: Jose Luis Lakhani Age: 44 yrs Sex: Male : 1975 Arrival Date: 08/22/2020 Time: 12:17 Bed 15 Private MD: ED Physician Carter Chaidez HPI: 08/22 16:18 This 44 yrs old Male presents to ER via Ambulatory with complaints of ma2 Abdominal Pain. 16:18 Onset: The symptoms/episode began/occurred gradually, 2 day(s) ago. Associated signs ma2 and symptoms: Pertinent negatives: blood in stools, constipation, dysuria. Severity of pain: At its worst the pain was mild in the emergency department the pain is unchanged. The patient has experienced similar episodes in the past, gastritis. Historical: - Allergies: 12:24 No Known Allergies; ss - Home Meds: 12:24 omeprazole 20 mg Oral cpDR 1 cap once daily [Active]; multivitamin oral tab daily ss [Active]; - PMHx: 12:24 None; ss - PSHx: 12:24 None; ss - Immunization history:: Adult Immunizations unknown, Client reports having NOT received the Covid vaccine. - Social history:: Smoking status: Patient denies any tobacco usage or history of. - Family history:: not pertinent. ROS: 16:18 Constitutional: Negative for fever, chills, and weight loss. ma2 16:18 All other systems are negative. Exam: 16:18 Constitutional: This is a well developed, well nourished patient who is awake, alert, ma2 and in no acute distress. Neck: Trachea midline, no thyromegaly or masses palpated, and no cervical lymphadenopathy. Supple, full range of motion without nuchal rigidity, or vertebral point tenderness. No Meningismus. Chest/axilla: Normal chest wall appearance and motion. Nontender with no deformity. No lesions are appreciated. Cardiovascular: Regular rate and rhythm with a normal S1 and S2. No gallops, murmurs, or rubs. Normal PMI, no JVD. No pulse deficits. Respiratory: Lungs have equal breath sounds bilaterally, clear to auscultation and percussion. No rales, rhonchi or wheezes noted. No increased work of breathing, no retractions or nasal flaring. Abdomen/GI: Soft, non-tender, with normal bowel sounds. No distension or tympany. No guarding or rebound. No evidence of tenderness throughout. Back: No spinal tenderness. No costovertebral tenderness. Full range of motion. Skin: Warm, dry with normal turgor. Normal color with no rashes, no lesions, and no evidence of cellulitis. MS/ Extremity: Pulses equal, no cyanosis. Neurovascular intact. Full, normal range of motion. Neuro: Awake and alert, GCS 15, oriented to person, place, time, and situation. Cranial nerves II-XII grossly intact. Motor strength 5/5 in all extremities. Sensory grossly intact. Cerebellar exam normal. Normal gait. Vital Signs: 12:22 BP 130 / 95; Pulse 92; Resp 15; Temp 99.9(TE); Pulse Ox 99% on R/A; Height 5 ft. 6 in. ss (167.64 cm); Pain 7/10; 12:37 BP 141 / 89; Pulse 90; Resp 18; Pulse Ox 99% on R/A; tr6 16:00 BP 145 / 93; Pulse 86; Resp 18; Pulse Ox 98% on R/A; tr6 16:34 BP 146 / 94; Pulse 77; Resp 18; Pulse Ox 100% on R/A; tr6 MDM: 12:28 Patient medically screened. ma2 16:18 Differential diagnosis: gastritis, Irritable bowel syndrome, non-specific abd pain, ma2 pancreatitis. Data reviewed: vital signs, nurses notes. Counseling: I had a detailed discussion with the patient and/or guardian regarding: the historical points, exam findings, and any diagnostic results supporting the discharge/admit diagnosis, the presence of at least one elevated blood pressure reading (>120/80) during this emergency department visit, the need for outpatient follow up. Response to treatment: the patient's symptoms have markedly improved after treatment. 08/22 12:42 Order name: Comprehensive Metabolic Panel; Complete Time: 13: EDNC 08/22 12:42 Order name: Lipase; Complete Time: : EDNC 08/22 12:42 Order name: Troponin I; Complete Time: 13: EDNC 08/22 12:42 Order name: CBC with Automated Diff; Complete Time: 14: EDNC 08/22 12:42 Order name: Urine Microscopic Only; Complete Time: 14: EDNC 08/22 13:17 Order name: Urine Dipstick-Ancillary; Complete Time: 13:31 EDMS 08/22 12:42 Order name: Abdomen ; Complete Time: 14:07 EDNC 08/22 13:47 Order name: Urine Culture EDNC 08/22 14:02 Order name: CREATININE WHOLE BLOOD; Complete Time: 14:07 EDMS 08/22 14:06 Order name: CBC Smear Scan; Complete Time: 14:07 EDNC 08/22 14:08 Order name: CPK; Complete Time: 15:12 ma2 08/22 14:09 Order name: US Abdomen Limited; Complete Time: 15:12 ma2 Administered Medications: 14:24 Drug: NS 0.9% 1000 ml Route: IV; Rate: 1 bolus; Site: right antecubital; tr6 Disposition: 08/22/20 16:20 Discharged to Home. Impression: Generalized abdominal pain, Cystitis, unspecified with hematuria. - Condition is Stable. - Discharge Instructions: Abdominal Pain, Adult, Urinary Tract Infection, Adult. - Prescriptions for Cipro 500 mg Oral Tablet - take 1 tablet by ORAL route every 12 hours for 7 days; 14 tablet. Pepcid 20 mg Oral Tablet - take 1 tablet by ORAL route once daily; 20 tablet. - Medication Reconciliation Form, Thank You Letter, Antibiotic Education, Prescription Opioid Use, Work release form form. - Follow up: Jovan Helton MD; When: Tomorrow; Reason: If symptoms return, Continuance of care. Signatures: Dispatcher [facility] Indira Aguilera RN RN ss Carter Chaidez MD MD ma2 Patricia Lambert RN RN tr6 Corrections: (The following items were deleted from the chart) 16:37 16:20 08/22/2020 16:20 Discharged to Home. Impression: Generalized abdominal pain; tr6 Cystitis, unspecified with hematuria. Condition is Stable. Forms are Medication Reconciliation Form, Thank You Letter, Antibiotic Education, Prescription Opioid Use. Follow up: Jovan Helton; When: Tomorrow; Reason: If symptoms return, Continuance of care. ma2
[2020-08-22 16:42] VITALS: TEMP 99.9
[2020-08-22 16:47] VITALS: BP 146/94; O2SAT 100
[2020-08-23] MEDS ORDERED: FAMOTIDINE 20 MG/2 ML VIAL IV SCH (09:00)
== END 2020-08-22 16:37 | disposition home or self-care (01) ==
LOC: ER 12:10
DX: N30.90 Cystitis, unspecified without hematuria (principal)
CPT/HCPCS: 87088; 85025; 87086; 36415; 82550; 82565; 84484; 83690; 80053; 74177; 76705; Q9967; J7030; 81003; 81015

== ENCOUNTER 2022-03-12 20:16 | Emergency (ER) | payer OTHER, SELFPAY ==
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
[2022-03-12] MEDS ORDERED: NA CHLORIDE 0.9% 250 ML ONE (21:44)
[2022-03-12] MEDS ORDERED: PANTOPRAZOLE 40 MG INJ ONE (21:44)
[2022-03-12] MEDS ORDERED: ONDANSETRON 4 MG/2 ML VIAL ONE (21:44)
[2022-03-12] MEDS ORDERED: NA CHLORIDE 0.9% 500 ML ONE (21:45)
[2022-03-12] MEDS ORDERED: NA CHLORIDE 0.9% 1,000 ML ONE (21:46)
[2022-03-12] MEDS ORDERED: OCTREOTIDE ACETATE 500 MCG/ML ONE (21:46)
--- NOTE | 2022-03-12 21:46 | RAD REPORT ---
EXAM DESCRIPTION: RAD - Chest Single View - 03/12/2022 9:40 pm CLINICAL HISTORY: vomiting COMPARISON: CHEST PA AND LAT 2 VIEW dated 07/24/2011 FINDINGS: Lines: None. Lungs: No evidence of edema or pneumonia. Pleural: No significant pleural effusions or pneumothorax. Cardiac: The heart size is within normal limits. Mediastinum: Within normal limits. Bones: No acute fractures. Other: None IMPRESSION: No acute cardiopulmonary disease.
[2022-03-12 21:49] LABS: Hematocrit 31.7 % (39.6-49.0); Lymphocytes % 12.4 % (15.3-44.8); MCV 92.8 fL (80-100); MPV 10.2 fL (7.6-11.3); RBC Red Blood Cell Count 3.41 M/uL (4.33-5.43)
[2022-03-12 21:56] LABS: Protime INR 1.28
[2022-03-12 22:13] LABS: Albumin 3.1 g/dL (3.4-5.0); Bilirubin Direct 0.1 mg/dL (0-0.2); Bilirubin Total 0.8 mg/dL (0.2-1.0); Potassium 3.8 mmol/L (3.5-5.1); Protein, Total 6.9 g/dL (6.4-8.2)
[2022-03-12 22:23] LABS: SARS-COV-2 RT PCR NEGATIVE (NEGATIVE)
--- NOTE | 2022-03-12 22:57 | RAD REPORT ---
EXAM DESCRIPTION: CTAbdomen Pelvis W Contrast - 03/12/2022 10:40 pm CLINICAL HISTORY: hematemesis COMPARISON: Abdomen Pelvis W Contrast dated 08/22/2020 TECHNIQUE: CT of the abdomen and pelvis was performed with IV contrast. All CT scans are performed using dose optimization technique as appropriate and may include automated exposure control or mA/KV adjustment according to patient size. FINDINGS: Lower chest: Circumferentially thickened distal esophagus. There are lower paraesophageal varices. Liver: Enlarged caudate lobe and slightly nodular liver configuration may indicate changes of cirrhos is. Biliary: Mild gallbladder wall thickening is a chronic finding. It may reflect underlying liver disea se. Stomach: No significant focal abnormality. Duodenum: No significant focal abnormality. Pancreas: No significant abnormality. Spleen: Borderline splenomegaly. Adrenal: No suspicious lesions. Kidney/ureter: No hydronephrosis. No renal calculi. Retroperitoneum: No retroperitoneal adenopathy. Vascular: No aneurysm. Mild atherosclerosis. Bowel: No significant focal abnormality. Normal appendix. Peritoneum: No ascites or free air. Bladder: Grossly unremarkable. Reproductive: No adnexal masses. Bones: No acute fracture. Other: n/a IMPRESSION: Esophageal varices are present. Consider endoscopy for further evaluation.
[2022-03-12] MEDS ORDERED: CEFTRIAXONE 1000 MG/VIAL ONE (23:10)
--- NOTE | 2022-03-12 23:39 | EDPHYS ---
Physician Documentation [facility] Name: Jose Luis Lakhani Age: 46 yrs Sex: Male : 1975 Arrival Date: 03/12/2022 Time: 20:17 Bed 13 Private MD: ED Physician Doris Jeffrey HPI: 03/12 21:10 This 46 yrs old Male presents to ER via Ambulatory with complaints of Vomiting cp - blood, Abdominal Pain. 21:10 The patient presents to the emergency department with vomiting, 3 times today, cp described as dark colored blood. Onset: The symptoms/episode began/occurred today. Possible causes: flare up of bowel problem, alcoholic liver cirrhosis. Associated signs and symptoms: Pertinent negatives: abdominal pain, constipation, diarrhea, fever, black and/or tarry stools. Severity of symptoms: in the emergency department the symptoms are unchanged despite home interventions. The patient has experienced similar episodes in the past, a few times. 21:10 Patient reports history of esophageal banding. cp Historical: - Allergies: 20:54 No Known Allergies; bb - Home Meds: 20:54 carvedilol oral [Active]; bb - PMHx: 20:54 Cirrhosis of liver; bb - Immunization history:: Client reports receiving the 2nd dose of the Covid vaccine. - Social history:: Smoking status: Patient denies any tobacco usage or history of. ROS: 21:15 Constitutional: Negative for body aches, chills, fever, poor PO intake. cp 21:15 Eyes: Negative for injury, pain, redness, and discharge. cp 21:15 ENT: Negative for drainage from ear(s), ear pain, sore throat, difficulty swallowing, difficulty handling secretions. 21:15 Cardiovascular: Negative for chest pain, palpitations. 21:15 Respiratory: Negative for cough, shortness of breath, wheezing. 21:15 Abdomen/GI: Positive for nausea, hematemesis, Negative for abdominal pain, black/tarry stool, rectal bleeding. 21:15 Back: Negative for pain at rest, pain with movement. 21:15 All other systems are negative. cp Exam: 21:20 Constitutional: The patient appears in no acute distress, alert, awake, cp non-diaphoretic, non-toxic, well developed, well nourished. 21:20 Head/Face: Normocephalic, atraumatic. cp 21:20 Eyes: Periorbital structures: appear normal, Conjunctiva: normal, no exudate, no cp injection, Sclera: no appreciated abnormality, Lids and lashes: appear normal, bilaterally. 21:20 ENT: External ear(s): are unremarkable, Nose: is normal, Mouth: Lips: moist, Oral mucosa: moist, Posterior pharynx: Airway: no evidence of obstruction, patent. 21:20 Chest/axilla: Inspection: normal. 21:20 Cardiovascular: Rate: normal, Rhythm: regular. 21:20 Respiratory: the patient does not display signs of respiratory distress, Respirations: normal, no use of accessory muscles, no retractions, labored breathing, is not present, Breath sounds: are clear throughout, no decreased breath sounds, no stridor, no wheezing. 21:20 Abdomen/GI: Inspection: abdomen appears normal, Bowel sounds: active, all quadrants, Palpation: soft, in all quadrants, mild abdominal tenderness, in the epigastric area, rebound tenderness, is not appreciated, involuntary guarding, is not appreciated. 21:20 Back: pain, is absent, ROM is normal. 21:20 Skin: no rash present. 21:20 Neuro: Orientation: to person, place \T\ time. Mentation: is normal, Motor: moves all fours, strength is normal, Sensation: is normal. 03/13 00:30 ECG was reviewed by the Attending Physician. Vital Signs: 03/12 20:52 BP 112 / 74; Pulse 79; Resp 18 S; Temp 98.2(O); Pulse Ox 99% on R/A; Weight 95.25 kg bb (R); Height 5 ft. 5 in. (165.10 cm); Pain 0/10; 22:23 BP 134 / 88; Pulse 79; Resp 16; Pulse Ox 100% on R/A; kl 03/13 00:26 BP 140 / 87; Pulse 88; kl 03/12 20:52 Body Mass Index 34.95 (95.25 kg, 165.10 cm) bb MDM: 03/12 20:55 Patient medically screened. 23:05 Data reviewed: vital signs, nurses notes, lab test result(s), radiologic studies, CT cp scan. 23:05 Differential diagnosis: gastritis, cholecystitis, pancreatitis, gastroenteritis, cp anemia, upper GI bleed. I considered the following discharge prescriptions or medication management in the emergency department Medications were administered in the Emergency Department. See MAR. Test considered but Not performed: Ultrasound US of liver. Care significantly affected by the following chronic conditions: Liver Disease. Counseling: I had a detailed discussion with the patient and/or guardian regarding: the historical points, exam findings, and any diagnostic results supporting the discharge/admit diagnosis, lab results, radiology results, the need to transfer to another facility, [facility] does not immediately have the required specialist. Response to treatment: the patient's symptoms have markedly improved after treatment. 03/12 21:07 Order name: Basic Metabolic Panel; Complete Time: 22:22 cp 03/12 22:22 Interpretation: Normal except: CL 108; GLUC 135; BUN 19; CA 8.2. cp 03/12 21:07 Order name: CBC with Diff; Complete Time: 22:10 cp 03/12 22:11 Interpretation: Normal except: WBC 16.40; RBC 3.41; HGB 10.8; HCT 31.7; PLT 112; ALISA% cp 79.0; LYM% 12.4; NEUT A 13.0. 03/12 21:07 Order name: LFT's; Complete Time: 22:22 cp 03/12 21:07 Order name: Magnesium; Complete Time: 22:22 cp 03/12 21:07 Order name: NT PRO-BNP; Complete Time: 22:22 cp 03/12 21:07 Order name: PT-INR; Complete Time: 22:10 cp 03/12 21:07 Order name: Troponin HS; Complete Time: 22:22 cp 03/12 21:07 Order name: ETOH Level; Complete Time: 23:03 cp 03/12 21:07 Order name: UDS cp 03/12 21:07 Order name: Ptt, Activated; Complete Time: 22:10 cp 03/12 21:07 Order name: Lactate w/ 2H reflex if indic.; Complete Time: 22:22 cp 03/12 21:07 Order name: COVID-19/FLU A+B; Complete Time: 22:50 cp 03/12 23:37 Interpretation: Reviewed. cp 03/12 21:39 Order name: Type And Screen; Complete Time: 23:24 cp 03/12 22:23 Order name: Blood Culture Adult (2) cp 03/12 21:07 Order name: XRAY Chest (1 view); Complete Time: 22:10 03/12 21:07 Order name: EKG; Complete Time: 21:08 03/12 21:07 Order name: Cardiac monitoring 03/12 21:07 Order name: EKG - Nurse/Tech 03/12 21:07 Order name: IV Saline Lock 03/12 21:07 Order name: Labs collected and sent 03/12 21:07 Order name: O2 Per Protocol 03/12 22:12 Order name: CT Abd/Pelvis - IV Contrast Only; Complete Time: 23:03 03/12 23:04 Interpretation: Report reviewed. 03/12 21:07 Order name: O2 Sat Monitoring EC/13 00:30 Rate is 61 beats/min. Rhythm is regular. AL interval is normal. QRS interval is normal. cp QT interval is normal. T waves are Inverted in lead aVR. Interpreted by me. Reviewed by me. Administered Medications: 03/12 20:50 Drug: Octreotide 50 mcg Route: IV; Rate: calculated rate; Site: right antecubital; 03/13 00:10 Follow up: Response: No adverse reaction 03/12 21:33 Drug: ProTONIX (pantoprazole) 40 mg Route: IVP; Site: right hand; 03/13 00:10 Follow up: Response: No adverse reaction 03/12 21:40 Drug: ProTONIX (pantoprazole) 8 mg/hr Route: IV; Rate: 25 ml/hr; Site: right hand; 03/13 00:09 Follow up: Response: No adverse reaction; IV Status: Infusion continued 03/12 21:55 Drug: Zofran (Ondansetron) 4 mg Route: IVP; Site: right antecubital; 03/13 00:10 Follow up: Response: No adverse reaction; Marked relief of symptoms 03/12 22:00 Drug: NS 0.9% 1000 ml Route: IV; Rate: 1 bolus; Site: right hand; 22:00 Follow up: IV Status: Completed infusion; IV Intake: 1000ml 22:18 Drug: Octreotide Infusion (50 mcg/hr) - (Octreotide 500 mcg, NS 0.9% 500 ml) Route: IV; kl Rate: 50 ml/hr; Site: right antecubital; 03/13 00:10 Follow up: Response: No adverse reaction; IV Status: Infusion continued 03/12 23:39 Drug: Rocephin (cefTRIAXone) 1 grams Route: IV; Rate: calculated rate; Site: right kl antecubital; 03/13 00:09 Follow up: Response: No adverse reaction 03/12 23:39 Drug: NS 0.9% 1000 ml Route: IV; Rate: 125 ml/hr; Site: right hand; Disposition: 03/13 05:18 STAFF ATTESTATION STATEMENT: I was immediately available onsite in the emergency sd2 department for consultation in the care of this patient. I did not see or examine this patient. Doris Jeffrey MD. Disposition Summary: 03/12/22 23:38 Transfer Ordered Transfer Location: Other Acute Care Facility cp Reason: Higher level of care cp Condition: Stable cp Problem: new cp Symptoms: have improved cp Accepting Physician: Doctor(03/13/22 01:01) evin Diagnosis - Hematemesis cp - Alcoholic cirrhosis of liver without ascites cp Forms: - Medication Reconciliation Form cp - SBAR form cp Signatures: Dispatcher [employer] Danette Coon RN RN kl Ballard, Brenda, RN RN bb Page, Corey, PA PA cp Dunlop, Stephanie, MD MD sd2 Corrections: (The following items were deleted from the chart) :03/12 23:38 Doctor william cleary
--- NOTE | 2022-03-12 23:39 | ER ---
Nurse's Notes [facility] Name: Jose Luis Lakhani Age: 46 yrs Sex: Male : 1975 Arrival Date: 03/12/2022 Time: 20:17 Bed 13 Private MD: Diagnosis: Hematemesis;Alcoholic cirrhosis of liver without ascites Presentation: 03/12 20:52 Chief complaint: Patient states: he started vomiting blood today. Coronavirus screen: bb At this time, the client does not indicate any symptoms associated with coronavirus-19. Ebola Screen: No symptoms or risks identified at this time. Initial Sepsis Screen: Does the patient meet any 2 criteria? No. Patient's initial sepsis screen is negative. Does the patient have a suspected source of infection? No. Patient's initial sepsis screen is negative. Risk Assessment: Do you want to hurt yourself or someone else? Patient reports no desire to harm self or others. Onset of symptoms was March 12, 2022. 20:52 Method Of Arrival: Ambulatory bb 20:52 Acuity: HERNESTO 2 bb Historical: - Allergies: 20:54 No Known Allergies; bb - Home Meds: 20:54 carvedilol oral [Active]; bb - PMHx: 20:54 Cirrhosis of liver; bb - Immunization history:: Client reports receiving the 2nd dose of the Covid vaccine. - Social history:: Smoking status: Patient denies any tobacco usage or history of. Screenin:21 [facility] ED Fall Risk Assessment (Adult) History of falling in the last 3 months, kl including since admission No falls in past 3 months (0 pts) Confusion or Disorientation No (0 pts) Intoxicated or Sedated No (0 pts) Impaired Gait No (0 pts) Mobility Assist Device Used No (0 pt) Altered Elimination No (0 pt) Score/Fall Risk Level 0 - 2 = Low Risk Oriented to surroundings, Maintained a safe environment, Hourly rounding (assess needs \T\ fall precautionary measures) done. Abuse screen: Denies threats or abuse. Nutritional screening: No deficits noted. Tuberculosis screening: No symptoms or risk factors identified. Assessment: 21:15 General: Appears distressed, uncomfortable, well groomed, well developed, well kl nourished, Behavior is calm, cooperative. Pain: Denies pain. Neuro: No deficits noted. Cardiovascular: No deficits noted. Respiratory: No deficits noted. Airway is patent Trachea midline Respiratory effort is even, unlabored. GI: Abdomen is round Pt is actively vomiting dark maroon emesis approx 50cc Bowel sounds present X 4 quads. Abd is soft Abdomen is tender to palpation Reports nausea. : No deficits noted. No signs and/or symptoms were reported regarding the genitourinary system. EENT: No deficits noted. No signs and/or symptoms were reported regarding the EENT system. Derm: No deficits noted. No signs and/or symptoms reported regarding the dermatologic system. 03/13 00:26 Reassessment: Patient appears in no apparent distress at this time. Patient and/or kl family updated on plan of care and expected duration. Pain level reassessed. Patient is alert, oriented x 3, equal unlabored respirations, skin warm/dry/pink. Patient states feeling better. Patient states symptoms have improved. Vital Signs: 03/12 20:52 BP 112 / 74; Pulse 79; Resp 18 S; Temp 98.2(O); Pulse Ox 99% on R/A; Weight 95.25 kg bb (R); Height 5 ft. 5 in. (165.10 cm); Pain 0/10; 22:23 BP 134 / 88; Pulse 79; Resp 16; Pulse Ox 100% on R/A; kl 03/13 00:26 BP 140 / 87; Pulse 88; kl 03/12 20:52 Body Mass Index 34.95 (95.25 kg, 165.10 cm) bb ED Course: 03/12 20:17 Patient arrived in ED. as 20:23 Anthony Valdez PA is PHCP. cp 20:23 Doris Jeffrey MD is Attending Physician. cp 20:52 Arm band placed on Patient placed in an exam room, on a stretcher, on pulse oximetry. bb Family accompanied patient. 20:54 Triage completed. bb 21:30 Inserted saline lock: 20 gauge in right antecubital area, using aseptic technique. kl Blood collected. 21:40 COVID-19/FLU A+B Sent. kl 21:40 Lactate w/ 2H reflex if indic. Sent. kl 21:40 Ptt, Activated Sent. kl 21:42 XRAY Chest (1 view) In Process Unspecified. EDMS 22:00 Inserted saline lock: 22 gauge in right hand, using aseptic technique. kl 22:18 Type And Screen Sent. kl 22:19 Initiated transfer to [facility], spoke with Mundo. wm 22:19 COVID-19/FLU A+B Sent. kl 22:42 CT Abd/Pelvis - IV Contrast Only In Process Unspecified. EDMS 22:[address] [facility] [address] wants to place Pt in an ICU bed, while waiting Anthony Page asked me to initiate wm with [facility] to keep from being in ICU. 22:57 Initiated transfer to [facility], spoke with Samia. wm 23:39 Blood Culture Adult (2) Sent. kl 23:46 Pt accepted for transfer to [facility] by Dr. Hayes, Parvizh \T\ [id number]. Immediately following, I called wm to cancel the transfer to [facility]. 03/13 00:09 Blood Culture Adult (2) Sent. kl 01:00 No provider procedures requiring assistance completed. Patient transferred, IV remains kl in place. 01:01 Patient has correct armband on for positive identification. kl Administered Medications: 03/12 20:50 Drug: Octreotide 50 mcg Route: IV; Rate: calculated rate; Site: right antecubital; 03/13 00:10 Follow up: Response: No adverse reaction 03/12 21:33 Drug: ProTONIX (pantoprazole) 40 mg Route: IVP; Site: right hand; 03/13 00:10 Follow up: Response: No adverse reaction 03/12 21:40 Drug: ProTONIX (pantoprazole) 8 mg/hr Route: IV; Rate: 25 ml/hr; Site: right hand; 03/13 00:09 Follow up: Response: No adverse reaction; IV Status: Infusion continued 03/12 21:55 Drug: Zofran (Ondansetron) 4 mg Route: IVP; Site: right antecubital; 03/13 00:10 Follow up: Response: No adverse reaction; Marked relief of symptoms 03/12 22:00 Drug: NS 0.9% 1000 ml Route: IV; Rate: 1 bolus; Site: right hand; 22:00 Follow up: IV Status: Completed infusion; IV Intake: 1000ml 22:18 Drug: Octreotide Infusion (50 mcg/hr) - (Octreotide 500 mcg, NS 0.9% 500 ml) Route: IV; kl Rate: 50 ml/hr; Site: right antecubital; 03/13 00:10 Follow up: Response: No adverse reaction; IV Status: Infusion continued 03/12 23:39 Drug: Rocephin (cefTRIAXone) 1 grams Route: IV; Rate: calculated rate; Site: right kl antecubital; 03/13 00:09 Follow up: Response: No adverse reaction 03/12 23:39 Drug: NS 0.9% 1000 ml Route: IV; Rate: 125 ml/hr; Site: right hand; Medication: 03/13 01:01 VIS not applicable for this client. kl Intake: 03/12 22:00 IV: 1000ml; Total: 1000ml. kl Outcome: 23:38 ER care complete, transfer ordered by . william 03/13 01:00 Transferred by ground EMS to [facility], Transfer form kl completed. X-rays sent w/ patient. Condition: stable Instructed on the need for transfer, Demonstrated understanding of instructions. 01:01 Patient left the ED. Signatures: Dispatcher [employer] EDDanette Rivera RN RN Danna Roland Brenda, RN RN Anthony Mcnulty PA PA Candy Hernandez Corrections: (The following items were deleted from the chart) 03/12 23:03 22:59 [facility] wants to place Pt in an ICU bed, while waiting Anthony Valdez asked me to wm initiate with [facility] to keep from being in ICU. wm 23:03 22:59 Initiated wm wm
[2022-03-13 00:58] LABS: Barbiturates NEGATIVE (NEGATIVE); Benzodiazepines NEGATIVE (NEGATIVE); Cocaine NEGATIVE (NEGATIVE); METHAMPHETAM NEGATIVE (NEGATIVE); Methadone NEGATIVE (NEGATIVE); Opiates NEGATIVE (NEGATIVE); Phencyclidine NEGATIVE (NEGATIVE); THC Cannibis NEGATIVE (NEGATIVE)
[2022-03-13 01:28] VITALS: TEMP 98.2
[2022-03-13 01:29] VITALS: O2SAT 100
[2022-03-13 01:30] VITALS: BP 140/87
--- NOTE | 2022-03-13 10:47 | EKG ---
Test Date: 2022-03-13 Test Time: 00:24:24 Inspector Penetrant: [place] MEASUREMENT RESULTS: Intervals: Rate: 61 NH: 154 QRSD: 96 QT: 422 QTc: 424 Ramona: P: 52 NH: 154 QRS: -8 T: 28 INTERPRETIVE STATEMENTS: Normal sinus rhythm Normal ECG No previous ECG available for comparison Electronically Signed On 03-13-22 10:46:29 ELECTRICAL SOLDERER by Michael Barnett
== END 2022-03-13 01:01 ==
LOC: ER 20:16
DX: K92.0 Hematemesis (principal); K70.30 Alcoholic cirrhosis of liver without ascites; Z20.822 Contact with and (suspected) exposure to COVID-19
CPT/HCPCS: 0240U; 36415; 71045; 74177; 80048; 80076; 80307; 83605; 83735; 83880; 84484; 85025; 85610; 85730; 86850; 86900; 86901; 87040; 93005; 99285; C9113; G0480; J2354; J2405; J7030; J7040; J7050; Q9967